=== PATIENT | male | born 1945 | race Caucasian/White ===

== ENCOUNTER 2022-08-16 12:51 | Outpatient (CLI) | payer MEDICARE, OTHER | END 2022-08-16 12:52 | disposition home or self-care (01) | LOC: CSHWCC 12:51 | PROVIDERS: ATTEND Nurse Practitioner Family | DX: I87.331 Chronic venous hypertension (idiopathic) with ulcer and inflammation of right lower extremity (principal); L97.811 Non-pressure chronic ulcer of other part of right lower leg limited to breakdown of skin; R60.0 Localized edema | CPT/HCPCS: 29581; 97139; G0463; 99203 ==

== ENCOUNTER 2022-08-19 08:05 | Outpatient (CLI) | payer MEDICARE, OTHER | END 2022-08-19 08:06 | disposition home or self-care (01) | LOC: CSHWCC 08:05 | PROVIDERS: ATTEND Nurse Practitioner Family | DX: I87.331 Chronic venous hypertension (idiopathic) with ulcer and inflammation of right lower extremity (principal); I87.312 Chronic venous hypertension (idiopathic) with ulcer of left lower extremity; L97.811 Non-pressure chronic ulcer of other part of right lower leg limited to breakdown of skin; L97.829 Non-pressure chronic ulcer of other part of left lower leg with unspecified severity; R60.0 Localized edema | CPT/HCPCS: 29581 ==

== ENCOUNTER 2022-08-23 09:42 | Outpatient (CLI) | payer MEDICARE, OTHER | END 2022-08-23 09:43 | disposition home or self-care (01) | LOC: CSHWCC 09:42 | PROVIDERS: ATTEND Nurse Practitioner Family | DX: I87.331 Chronic venous hypertension (idiopathic) with ulcer and inflammation of right lower extremity (principal); I87.312 Chronic venous hypertension (idiopathic) with ulcer of left lower extremity; L97.811 Non-pressure chronic ulcer of other part of right lower leg limited to breakdown of skin; L97.829 Non-pressure chronic ulcer of other part of left lower leg with unspecified severity; R60.0 Localized edema | CPT/HCPCS: 29581 ==

== ENCOUNTER 2022-08-26 08:20 | Outpatient (CLI) | payer MEDICARE, OTHER | END 2022-08-26 08:21 | disposition home or self-care (01) | LOC: CSHWCC 08:20 | PROVIDERS: ATTEND Nurse Practitioner Family | DX: R60.0 Localized edema (principal) | CPT/HCPCS: 29581 ==

== ENCOUNTER 2022-08-30 10:26 | Outpatient (CLI) | payer MEDICARE, OTHER | END 2022-08-30 10:27 | disposition home or self-care (01) | LOC: CSHWCC 10:26 | PROVIDERS: ATTEND Nurse Practitioner Family | DX: R60.0 Localized edema (principal) | CPT/HCPCS: 99213; G0463 ==

== ENCOUNTER 2022-10-10 09:50 | Outpatient (CLI) | payer MEDICARE, OTHER | END 2022-10-10 09:51 | disposition home or self-care (01) | LOC: CSHWCC 09:50 | PROVIDERS: ATTEND Nurse Practitioner Family | DX: I87.2 Venous insufficiency (chronic) (peripheral) (principal) | CPT/HCPCS: 97139; G0463; 99212 ==